=== PATIENT | male | born 1980 | race Caucasian/White ===

== ENCOUNTER → 2016-07-16 | Outpatient (CLI) | payer BC ==
[~2016-07-16] VITALS: Ht 175.3 cm; Wt 76.2 kg
[~2016-07-16] MED LIST: CLONAZEPAM 1 MG1 M1 PO; CYMBALTA20 MG PO; IBUPROFEN 600600 M1 PO; LYRICA100 MG PO; TRAMADOL 50 MG50 MG PO
--- NOTE | ~2016-07-16 | HPC ---
[facility] [address] [place] [address] PAIN MANAGEMENT CONSULTATION Name: KENNETH NAYLOR II Room #: REG LUZ MARIA Bogdan.#: [id number] Admission: 07/16/16 Attend Phys: John Bay DO Discharge: Date of : 80 Report #: [id number] THIS REPORT FOR: //name// CC: TALAT Bya HISTORY OF PRESENT ILLNESS: The patient is a very pleasant 35-year-old gentleman who I saw nearly decade ago in 2006 for neuropathic pain, bilateral lower extremities, component of lumbar radiculopathy secondary to spinal stenosis. The patient ultimately progressed to have spinal cord stimulator implanted at that time. Spinal cord stimulator apparently had good relief, but about 3 years ago the battery . He has been managing burning dysesthesia bilateral feet, pain radiating to the low back down both legs for some time. States pain is exacerbated with sitting or bending. Gets some relief when he is recumbent. He describes constant, throbbing, sharp, aching pain, rates it anywhere from 3-7 on a 0-10 visual analog scale 6/10 today. Describes constant, throbbing, sharp pain, fortunately denies specific myelopathic symptoms. Does take Lyrica 100 mg b.i.d., tramadol 50 mg 2-3 times a day, Cymbalta has recently started actually from psychiatrist for anxiety and issues, but been helpful with pain. REVIEW OF SYSTEMS: Complete review of systems attached to chart and gone over with the patient, is , has a [id number] smoking history. Drinks alcohol socially. History of some colitis issues, the really generally healthy young man and takes no medications other than for anxiety and pain. 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 Does have a fair bit of walking, standing and some desk work as well with this job. Pain impact score is 27/70. PHYSICAL EXAMINATION: GENERAL: Reveals a 5 feet 9 inches, 168 pounds gentleman, BMI is 24.8 kilograms per meter squared. VITAL SIGNS: Blood pressure 135/68, pulse 83, respirations are 14, oxygen saturation 100%. NECK: Cranial nerves 2-12 grossly intact. Speech is fluent. Alert and oriented to person, place and time, judged to be a reasonable historian. Cervical range of motion is full. Thyroid is unremarkable. Upper extremity strength is preserved. HEART: Regular rhythmical without murmur. LUNGS: Clear to auscultation. MUSCULOSKELETAL: Rises from chair using armrest. Diffuse tenderness across the low back. Lumbar flexion is modestly limited. Lower extremity strength is preserved. Subjective paresthesia in the feet, exacerbated with standing and walking. Component of neurogenic claudication. Patellar and Achilles reflexes are preserved. Straight leg raise is nominally positive bilaterally. DIAGNOSTIC STUDIES: There are no recent [place] [address] PAIN MANAGEMENT CONSULTATION Name: KENNETH NAYLOR MICHELE Room #: REG [facility]..#: [id number] Admission: 07/16/16 Attend Phys: John Bay DO Discharge: Date of : 80 Report #: [id number] evaluation at this time. ASSESSMENT: Symptomatic lumbar radiculopathy secondary to spinal stenosis, neuropathic pain requiring complex medication management, excellent relief of spinal cord stimulator in the past, but generators failed. RECOMMENDATIONS: I did images the leads today they have migrated caudad. the entire device and leads need to be replaced. I will refer the patient to Dr. Wills in case the pain for consideration for either a [employer] or [employer] device that will enable burst of high frequency stimulation, better cover in low back and MRI compatible system with hopefully charging being required less than daily. We will get CT scan of the thoracolumbar spine to rule out any surgical correctable pathology contributing to the neurogenic claudication symptoms and we want to look at thoracic spine for spinal cord stimulator placement consideration. Epidural injection under fluoroscopy today at L5-S1 to help mitigate current symptoms. Follow up after diagnostic studies for further evaluation. ASSESSMENT: Symptomatic lumbar radiculopathy secondary to spinal stenosis. PROCEDURE: Lumbar epidural injection under fluoroscopy. PROCEDURE NOTE: After both written and informed consent to include risk of spinal cord damage, increased pain, weakness and dural puncture, the patient was taken to the fluoroscopy suite, placed in the prone position. After sterile prep and drape, a skin wheal with lidocaine was raised. A 22-gauge epidural Tuohy needle was inserted in the midline at L4-L5 with good loss to resistance. Negative aspiration for cerebrospinal fluid or blood was noted. Then 1 mL of Omnipaque under biplanar fluoroscopy showed good spread within the epidural space. This was followed with 80 mg of triamcinolone plus 1 mL of 1.5% preservative-free Xylocaine, 0.5 mL Xylocaine was then injected to flush the needle; it was removed. The patient was monitored for an appropriate period of time and discharged in good and stable condition. By: [id number] [id number] John Bay DO /nt
[2016-07-16 13:18] VITALS: BP 135/68
== END | disposition home or self-care (01) ==
LOC: PAIN 07-10 07:07
DX: M48.06 Spinal stenosis, lumbar region (principal); M79.661 Pain in right lower leg; M79.662 Pain in left lower leg; F17.210 Nicotine dependence, cigarettes, uncomplicated; F41.9 Anxiety disorder, unspecified

== ENCOUNTER → 2016-09-18 | Outpatient (CLI) | payer BC ==
[~2016-09-18] VITALS: Ht 175.3 cm; Wt 73.8 kg
--- NOTE | ~2016-09-18 | HPC ---
[facility] [place] [address] PAIN MANAGEMENT CONSULTATION Name: KENNETH NAYLOR Room #: REG LUZ MARIA Peña#: [id number] Admission: 09/18/16 Attend Phys: John Bay DO Discharge: Date of : 80 Report #: [id number] THIS REPORT FOR: //name// CC: TALAT Bay SUBJECTIVE: The patient is a pleasant 36-year-old gentleman who had prior been seen for symptomatic lumbar radiculopathy secondary to spinal stenosis, neuropathic pain requiring complex medication management. He is somewhat lost to follow up. I did see him for 07/16/2016, with exacerbation of radicular pain. We proceeded with an epidural injection at L5-S1 at that time. Suggested the patient follow up with Dr. Wills for consideration for replacement of his [employer] spinal cord stimulator. This had been quite efficacious but lost coverage sometime ago. To give it benefit from replacement of the device, we talked about proceeding with a [employer] or [employer] device, which would be an MRI compatible and enable high frequency stimulation. The patient has ongoing neuropathic pain, continues to take Lyrica 100 mg b.i.d. I ordered a CT of the lumbar spine, which was never accomplished. The patient returns to pain clinic today noting exacerbation of pain, low back, posterior aspect of buttock, left greater than right leg to the knee. The patient notes he has episodic cramping in both legs from the feet to the calf. He notes pain recurred last week. The prior injection had afforded some 80% relief for greater than 6 weeks. The patient rates pain an 8/10. PHYSICAL EXAMINATION: GENERAL: A 36-year-old gentleman, BMI is 24 kilograms per meter squared. VITAL SIGNS: Stable as noted in the EMR. MUSCULOSKELETAL: Position of comfort is supine. Rises from chair using armrests. Antalgic gait. Positive straight leg raise on the left side. Slight decreased left leg strength compared to the right. Diffuse tenderness across the low back. No discrete trigger points noted. Subjective description of pain sounds quite neuropathic. Incidentally, the patient had failed gabapentin in the past. He is taking Lyrica 100 mg b.i.d. ASSESSMENT: Symptomatic lumbar radiculopathy secondary to spinal stenosis. RECOMMENDATIONS: 1. Repeat epidural injection under fluoroscopy today at L5-S1. 2. I gave the patient samples of Lyrica 75 mg. I instructed the patient that if after 1 week, he is not getting significant relief with the epidural injection, we will have him increase his Lyrica from 200 mg a day to 275 ([address] [address] PAIN MANAGEMENT CONSULTATION Name: KENNETH NAYLOR Room #: REG LUZ MARIA Pompa#: [id number] Admission: 09/18/16 Attend Phys: John Bay DO Discharge: Date of : 80 Report #: [id number] the morning and 100 plus 75 mg sample tablets at bedtime). If this does not afford adequate relief in 2 weeks (the patient was given 3 weeks of the 75 mg tablet), I did also re-order a CT of the lumbar spine to ensure that we are not overlooking any surgically correctable pathology. I will see the patient back in 3 weeks to evaluate efficacy. PROCEDURE: Lumbar epidural injection under fluoroscopy. PROCEDURE NOTE: After both written and informed consent to include risk of spinal cord damage, increased pain, weakness and dural puncture, the patient was taken to the fluoroscopy suite, placed in the prone position. After sterile prep and drape, a skin wheal with lidocaine was raised. A 22-gauge epidural Tuohy needle was inserted in the midline at L5-S1 with good loss to resistance. Negative aspiration for cerebrospinal fluid or blood was noted. Then 1 mL of Omnipaque under biplanar fluoroscopy showed good spread within the epidural space. This was followed with 80 mg of triamcinolone plus 1 mL of 1.5% preservative-free Xylocaine, 0.5 mL Xylocaine was then injected to flush the needle; it was removed. The patient was monitored for an appropriate period of time and discharged in good and stable condition. <ELECTRONICALLY SIGNED> By: John Bay DO 09/21/16 [id number] [id number] John Bay DO /nt
[2016-09-18 12:49] VITALS: BP 105/66
== END | disposition home or self-care (01) ==
LOC: PAIN 12:35
DX: M54.16 Radiculopathy, lumbar region (principal); M48.06 Spinal stenosis, lumbar region; G62.9 Polyneuropathy, unspecified; F17.200 Nicotine dependence, unspecified, uncomplicated

== ENCOUNTER → 2018-01-12 | Outpatient (CLI) | payer BC ==
[~2018-01-12] VITALS: Ht 175.3 cm; Wt 70.7 kg
[~2018-01-12] MED LIST changes: +PROTONIX40 M1 PO; +XANAX1 MG PO
--- NOTE | ~2018-01-12 | HPC ---
[facility] [place] [address] PAIN MANAGEMENT CONSULTATION Name: KENNETH NAYLOR Room #: REG LUZ MARIA AragonMargyShaan.#: [id number] Admission: 01/12/18 Attend Phys: Elda Hugo MD Discharge: Date of : 80 Report #: [id number] THIS REPORT FOR: //name// CC: Elda Hugo Physician staff [facility] DATE OF SERVICE: 01/12/2018 PRIMARY CARE PHYSICIAN: Dr. Parish Rojas. CHIEF COMPLAINT: Back pain and an improvement with epidural injection. HISTORY OF PRESENT ILLNESS: The patient is a 37-year-old gentleman who has been seen in the pain clinic in the past by Dr. John Bay. The patient suffers from symptomatic lumbar radiculopathy secondary to spinal stenosis. He also has some neuropathic pain requiring complex medication management. He has noted some exacerbation of his pain with pain that is radiating down into his legs posteriorly. They involve the L5-S1 dermatomal distribution. He has undergone an epidural steroid injections and found that was beneficial. The patient has some efficacy as a result of these injections. He would to like to proceed with another injection today. He also has undergone a spinal cord stimulator placement in the past. He has noticed that the battery has . He does not find the stimulator is effective. Does have some pain in the groin area on the right as well as pain in the left and right leg in the L5-S1 distribution. He would like to proceed with an epidural steroid injection to help decrease pain and discomfort, which he is experiencing at this juncture. ALLERGIES: PENICILLIN. CURRENT MEDICATIONS: Protonix 40 mg, alprazolam 1 mg, Motrin 600 mg q.6 hours, Cymbalta 20 mg, tramadol 50 mg b.i.d., Lyrica 100 mg b.i.d. PAST MEDICAL HISTORY: Colon problems. PAST SURGICAL HISTORY: [place] teeth extraction in 1999, left MCL/ACL repair in 2015, spinal cord stimulator in 2007 or 2008. 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 REVIEW OF SYSTEMS: Generally good health, wears glasses, insomnia. LABORATORY DATA: No new laboratory values are available. PAIN CLINIC ASSESSMENT AND PQRS: [facility] [address] [place] [address] PAIN MANAGEMENT CONSULTATION Name: KENNETH NAYLOR Room #: REG [facility].#: [id number] Admission: 01/12/18 Attend Phys: Elda Hugo MD Discharge: Date of : 80 Report #: [id number] 1. History of osteoarthritis. The patient has some arthritic change in his knee, has had surgery. 2. Rheumatoid arthritis. The patient has not been treated for rheumatoid arthritis. 3. Height 5 feet 9 inches, weight 155 pounds, BMI is 23. 4. Vital signs: Blood pressure 112/68, pulse 69, respiratory rate 14, room air saturation 97%. 5. Pain intensity 09/19. 6. Fall risk. The patient has not fallen in the last 3 months. 7. Blood thinner. The patient is not on a blood thinning medication. 8. Hypertension. The patient is not being treated for hypertension. 9. Opioid therapy greater than 6 weeks. The patient is not on an opioid regimen. 10. Pain risk: 0/3 for opioid use. 11. Functional assessment tool. 12. Recreational drug use. The patient denies use of recreational drugs. 13. Tobacco: The patient has smoked 1 pack a day for 15 years. Discussed the benefits of decreasing tobacco use. 14. Alcohol: The patient admits to alcoholic beverage use on occasion. PHYSICAL EXAMINATION: GENERAL: The patient is a well-developed, well-nourished, white male. Appears his stated age. He is alert and oriented x 3. Affect is appropriate. HEENT: Normocephalic, atraumatic. Extraocular eye muscles intact. Sclerae nonicteric. Mucous membranes are moist. NECK: Without adenopathy or JVD. HEART: Regular rate. LUNGS: Clear to auscultation. EXTREMITIES: Upper extremity muscle strength is judged to be 5/5 for the major muscle groups. The patient without significant scoliosis, kyphosis or lordosis. Has pain and discomfort in the lower portion of his back with pain that is radiating down in the L5-S1 distribution bilaterally. Notes some pain and discomfort occasionally in the groin area. IMPRESSION: 1. Lumbar radiculopathy. 2. History of lumbar spinal stenosis with radiculopathy. 3. History of colon problems. RECOMMENDATIONS: We discussed treatment options with the patient. Risks and benefits of an epidural steroid injection were discussed. The patient is aware of the possible complications, which could include but are not limited to infection, increased muscle soreness, headache, bleeding, worsening of pain, no improvement in pain. The patient elects to proceed. PROCEDURE NOTE: The patient was taken to the procedure area. He was assisted [facility] [address] [place] [address] PAIN MANAGEMENT CONSULTATION Name: CYNDYKENNETH #: REG LUZ MARIA Pompa#: [id number] Admission: 01/12/18 Attend Phys: Elda Hugo MD Discharge: Date of : 80 Report #: [id number] in getting on the examination table. His back was sterilely prepped with a Betadine solution. Fluoroscopy using anterior, posterior as well as lateral viewing were implemented. The patient's back was infiltrated with 0.25% bupivacaine using a midline approach at the L5-S1 area. Appropriate placement was judged using fluoroscopy. A total of 80 mg Depo-Medrol, 40 mg triamcinolone and 2 mL of 0.25% bupivacaine was injected. The patient tolerated the procedure well. Pain decreased to 0 at the time of his discharge. He will follow up in the future as needed. We would like to thank you for letting us participate in his care. We hope he continues to improve. <ELECTRONICALLY SIGNED> By: Elda Hugo MD 01/24/18 1124 [id number] [id number] Elda Hugo MD /[facility]
[2018-01-12 13:05] VITALS: BP 112/68
== END | disposition home or self-care (01) ==
LOC: PAIN 12:25
DX: M54.16 Radiculopathy, lumbar region (principal); G89.29 Other chronic pain; F17.210 Nicotine dependence, cigarettes, uncomplicated; Z87.19 Personal history of other diseases of the digestive system; Z88.0 Allergy status to penicillin; Z79.899 Other long term (current) drug therapy; Z98.890 Other specified postprocedural states